=== PATIENT | male | born 1970 | race Caucasian/White ===

== ENCOUNTER 2016-08-30 14:12 | Emergency (ER) | payer OTHER ==
[~2016-08-30 14:12] MED LIST: CHILDRENS CHEWA81 MG PO; COZAAR25 MG PO; DYAZIDE 37.5-21 EACH PO; FLAGYL500 MG PO; HYDROCODON-ACE1 EAC6 PO; LEVAQUIN500 MG PO; NICODERM 21MG PA1 EA TD; PRAVACHOL40 MG PO; PRILOSEC OTC20 MG PO; TENORMIN50 MG PO; VISTARIL25 MG PO; ZOLOFT100 MG PO
== END 2016-08-30 14:54 | disposition home or self-care (01) ==
LOC: ER 14:12
DX: M50.30 Other cervical disc degeneration, unspecified cervical region (principal); M51.34 Other intervertebral disc degeneration, thoracic region; M79.1 Myalgia; T14.8 Other injury of unspecified body region; X58.XXXA Exposure to other specified factors, initial encounter; Z79.899 Other long term (current) drug therapy
CPT/HCPCS: 72040; 72072; 99283-25